=== PATIENT | female | born 1950 | race Two or more races ===

== ENCOUNTER 2020-07-20 05:50 | Day surgery (SDC) | payer OTHER ==
[~2020-07-20 05:50] MED LIST: BENICAR HCT 401 EAC1 PO; CLARIN; LEVSIN0.125 MG PO; SYNTHROID50 MCG PO; TRANXENE T-TAB7.5 MG PO; VERAPAMIL ER240 MG PO; [UNRECOGNIZED DRUG - OTHER]
== END 2020-07-20 11:20 | disposition home or self-care (01) ==
LOC: CIR.AMB 05:50
PROVIDERS: ATTEND Colon & Rectal Surgery
DX: R15.9 Full incontinence of feces (principal); Z20.828 Contact with and (suspected) exposure to other viral communicable diseases
CPT/HCPCS: 64590; 64581; 95972; C1778; L8679

== ENCOUNTER 2020-08-03 06:09 | Day surgery (SDC) | payer OTHER | END 2020-08-03 12:15 | disposition home or self-care (01) | LOC: CIR.AMB 06:09 | PROVIDERS: ATTEND Colon & Rectal Surgery | DX: R15.9 Full incontinence of feces (principal); Z20.828 Contact with and (suspected) exposure to other viral communicable diseases | CPT/HCPCS: 64590; 95971; L8679 ==